=== PATIENT | male | born 1975 | race Caucasian/White ===

== ENCOUNTER 2016-05-25 12:05 | Day surgery (SDC) | payer OTHER ==
[~2016-05-25] VITALS: Ht 177.8 cm; Wt 91.2 kg
--- NOTE | 2016-05-25 06:49 | PCM.HPANE ---
Patient Data Surgeon Admitting Provider: Attending Provider:Yara Cartwright MD Primary Care Physician:Kehinde Flores MD Other Provider:[facility] Reason for Visit Family Planning Ht/WT & BMI Height (Feet): 5 Height (Inches): 10.5 Weight (Kilograms): 92.530 Body Mass Index 28.00 Allergies Coded Allergies: Sulfa (Sulfonamide Antibiotics) (Unverified Allergy, Unknown, 05/25/16) Past Anesthesia History Anesthesia History: Denies:: Anesthesia Reactions Diabetes History Hx Diabetes?: No MRSA MRSA: No Medications Reported Medications Esomeprazole Magnesium (Nexium)20 Mg Capsule.dr20 Mg PO DAILY Ref 0 05/22/16 Multivitamin (Multi Vitamin Daily)1 Each Tablet1 Each PO DAILY 30 Days Ref 0 05/22/16 Zolpidem (Ambien)10 Mg Xevmwd05 Mg PO HS PRN For Insomnia Ref 0 05/22/16 Fexofenadine/Pseudoephedrine ER (Payal-D 12 Hour)1 Each Tablet1 Tablet PO BID 05/22/16 History History of ENT Problems?: No Hx of Heart Problems?: No Hx of Respiratory Problem?: No Respiratory History: Denies:: Asthma COPD Emphysema Oxygen Administration Use of C-PAP Machine Hx Neurologic Problems?: No Neurological History: Denies:: CVA Headaches Multiple Sclerosis Parkinson's Disease Seizures TIA Hx of GI Problems?: Yes Gastrointestinal History: Positive for:: Gastroesphageal Reflux Heartburn Denies:: Gall Bladder Disease Hx of Problems?: No Male Hx: Denies:: Prostate Problems Scrotal Mass Testicular Surgery (vasectomy- family planning current admission problem) Skin History: Denies:: History Skin Disorders? Pressure Ulcers Hx Musculoskeletal Problems?: No Musculoskeletal History: Denies:: Back Injury Fibromyalgia Joint Replacement Musculoskeletal Trauma Myasthenia Gravis Osteoarthritis Hx of Psycho/Social Problems?: No Hx Surgeries?: Yes (appe) Hx Any Other Health Problems?: Yes Other History: Denies:: Cancer Thyroid Disease Hx Diabetes: No Hx Alcohol Use: YesAlcoholic Drinks Per Day: one drink dailyHx Substance Use: NoHave You Smoked inLast 12 mo: No Stop/Bang S-Snoring: Do You Snore Loudly: Yes T-Tired: feel tired, fatigued: Yes O-Obsered: Observed not breath: No P-Blood Pressure: treated: No B- Body Mass Index > 35 kg/m2: No A- Age over 50: No N- Neck Large Circumference: No G- Gender Male: Yes CRYSTAL Total Score: 3 Risk Assessment Category Category 1A: Patient has history of documented sleep apnea, and HAS NOT received any narcotic, sedative or anesthesia administration during this stay. Category 1B: Patient has history of documented sleep apnea, and HAS received any narcotic , sedative or anesthesia administration during this stay Category 2: Patient has SUSPECTED Obstructive Sleep Apnea, and HAS received any narcotic , sedative or anesthesia administration during this stay. Category 3: Patient has SUSPECTED Obstructive Sleep Apnea and HAS NOT received narcotic, sedative or anesthesia administration during this stay. Category 4: Outpatient in Procedural Areas with known sleep apnea or who screen positive for High Risk via the STOP/BANG questionnaire. Exam Exam General Appearance: Alert, Oriented X3, Cooperative HEENT/AIRWAY: MP 2, Neck Movement (from, thin), Mouth Opening (wnl) Lungs: Clear to Auscultation Heart: Exam Unremarkable Plan Impression Patient chart reviewed, patient interviewed and anesthestic plan with risks, benefits, and alternatives discussed, and informed consent obtained. ASA Physical Status: ASA1 Normal Healthy Anesthetic Plan: MAC Bene/Risks/Altern/Consents: Yes HP Complete Prior to Induction: Yes Tino Ramirez MD May 25, 2016 06:49
[~2016-05-25 12:05] MED LIST: CeFAZolin Inj 2 GM in IV Premix 1 EACH IV ONE; ESOM20CA28 PO; FEXO1TAB4 PO; Lactated Ringer's 1,000 ML IV ONE; MULT-1018 PO; ZLP10T PO
[2016-05-25] MEDS ORDERED: fentaNYL-PF 50 mCg/mL 2 mL Inj ONE (12:06)
[2016-05-25] MEDS ORDERED: Ondansetron 2 mg/mL 2 mL Inj ONE (12:06)
[2016-05-25] MEDS ORDERED: CeFAZolin Inj 2 gm / 50mL D5W IV ONE (12:52)
[2016-05-25 13:05] VITALS: BP 136/92; PULSE 86; RESP 16; O2SAT 94
[2016-05-25] MEDS ORDERED: Lactated Ringer's 500 ML IV PRN (14:51)
[2016-05-25] MEDS ORDERED: Lactated Ringer's 1,000 ML IV SCH (14:51)
[2016-05-25] MEDS ORDERED: HYDROmorphone 1 mg/mL Inj IVPUSH PRN (14:55)
[2016-05-25] MEDS ORDERED: fentaNYL-PF 50 mCg/mL 2 mL Inj IVPUSH PRN (14:55)
[2016-05-25] MEDS ORDERED: Labetalol 5 mg/mL 4 mL Inj IV PRN (14:55)
[2016-05-25] MEDS ORDERED: EPHEDrine Sulfate 50 mg/mL Inj IVPUSH PRN (14:55)
[2016-05-25] MEDS ORDERED: Atropine 0.4 mg/mL Inj IVPUSH PRN (14:55)
[2016-05-25] MEDS ORDERED: hydrALAZINE 20 mg/mL Inj IVPUSH PRN (14:55)
[2016-05-25] MEDS ORDERED: Dexamethasone 4 mg/mL Inj IVPUSH PRN (14:55)
[2016-05-25] MEDS ORDERED: Phenylephrine 10,000 mCg/mL Inj IVPUSH PRN (14:55)
[2016-05-25] MEDS ORDERED: Ondansetron 2 mg/mL 2 mL Inj IVPUSH PRN (14:55)
[2016-05-25] MEDS ORDERED: HYDROcodone-APAP 5-325 mg Tablet PO PRN (15:15)
--- NOTE | 2016-05-25 15:19 | PCM.ANEP1 ---
Post Anesthesia Phase 1 PACU Phase 1 Assessment Vital Signs Vital Signs Date Time Temp Pulse Resp B/P Pulse Ox O2 Delivery O2 Flow Rate FiO2 05/25/16 13:05 36 86 16 136/92 94 Room Air Anesthetic Administered: MAC Level of Alertness: Awake, talking BRIGHT's with Equal Strength: Yes Pain: No Nausea or Vomiting: No Oxygen Delivery: Room Air Lungs: Normal Air Movement Tino Ramirez MD May 25, 2016 15:19
[2016-05-25 15:21] VITALS: BP 148/79; PULSE 83; RESP 16; O2SAT 96
[2016-05-25 15:45] VITALS: BP 136/70; PULSE 91; RESP 16; O2SAT 94
--- NOTE | 2016-05-26 01:58 | OP ---
[address] [address] OPERATIVE REPORT PATIENT: OSBALDO KOCH : 1975 MR#: [id number] ADMIT: 05/25/2016 JOB ID: [id number] DATE OF SURGERY: 05/25/2016 PREOPERATIVE DIAGNOSIS(ES): Family planning. POSTOPERATIVE DIAGNOSIS(ES): Family planning. PROCEDURE PERFORMED: Bilateral vasectomy. SURGEON: Yara Cartwright MD. CLASSIFICATION AND TREATMENT DIRECTOR: None. FINDINGS: Bilateral vas deferens. ANESTHESIA: 1. Monitored anesthesia care. 2. Lidocaine 1% plain local subcutaneously. ESTIMATED BLOOD LOSS: 2 mL. DRAINS: None. SPECIMENS: Bilateral vas deferens. COMPLICATIONS: None. CONDITION: Stable. INDICATION FOR PROCEDURE: The patient is a 40-year-old gentleman who wishes to undergo vasectomy. He did not appeared to tolerate the scrotal exam in the clinic; and therefore, was counseled about options for vasectomy in clinic verus the operating room. He wished for the latter. DESCRIPTION OF PROCEDURE: After informed consent was obtained, the patient was taken to the operating room. Time-out was performed, identifying correct patient, surgical site, and procedure. Monitored anesthesia care was smoothly induced. He was placed in supine position. All pressure points were identified and appropriately padded. His genitals were then prepped and draped in usual sterile fashion. The vasectomy proceeded on the left side, first palpating the vas deferens. Lidocaine 1% was instilled subcutaneously. Penetrating towel clamps were used to isolate the vas and a 15 blade was used to incise the skin. The vas deferens was delivered through the incision. It was ligated with 2-0 Vicryl at the proximal and distal ends, and it was sharply incised, passing a segment off to Pathology as vas deferens. Bovie was used to cauterize both ends and the skin was closed with 3-0 chromic in interrupted fashion x2. The vasectomy proceeded in identical fashion on the right side. Patient tolerated procedure well without any apparent complications. He was taken to the PACU in good and stable condition. [facility]
--- NOTE | 2016-05-26 07:44 | PCM.ANEP2 ---
Post Anesthesia Evaluation ASA/CMS Post Anesthesia VS in Patient's Normal Range?: Yes Resp Stable; Airway Patent?: Yes CV Function & Hydration Stable: Yes Mental Status Recovered?: Yes Pain control Satisfactory?: Yes N/V Control Satisfactory?: Yes Tino Ramirez MD May 26, 2016 07:44
--- NOTE | 2016-05-26 14:02 | PATH ---
SURGICAL PATHOLOGY Attending Physician:Yara Cartwright, CASE STATUS: Signed Out PATIENT NAME: OSBALDO KOCH PID: [id number] : 1975 DATE COLLECTED:05/25/2016 23:33 SPECIMEN: Vas Deferens, Sterilization CLINICAL HISTORY: FAMILY PLANNING 1). VAS DEFERENS FINAL DIAGNOSIS: 1.SEGMENTS OF RIGHT AND LEFT VAS DEFERENS (STERILIZATION PROCEDURE): NO SIGNIFICANT PATHOLOGIC CHANGE. ICD10 CODE Z30.2 GROSS DESCRIPTION: The specimen is received in one formalin filled container labeled with the patient's name, sublabeled "vas deferens" and consists of 2 avery-garcía cylindrical shaped portions of tissue. The first measures 0.4 x 0.3 x 0.3 CM. The specimen is inked blue and entirely submitted in one cassette to be possibly further sectioned at the time of embedding. The second piece measures 0.4 x 0.3 x 0.3 CM. The specimen is inked black and entirely submitted in the same cassette to be possibly further sectioned at the time of embedding. 05/26/2016 DAC MICRO DESCRIPTION: See diagnosis. ICD-9 CODES: CPT CODES: 1: 05842 Electronically Signed Out Darwin Blanton MD [facility] [address], [place] [address] Technical component performed at [facility], [address] [place] [address] Ave[address], [place], [address]
== END 2016-05-25 23:59 | disposition home or self-care (01) ==
LOC: SAS 12:05
PROVIDERS: ATTEND Urology
DX: Z30.2 Encounter for sterilization (principal); K21.9 Gastro-esophageal reflux disease without esophagitis; Z87.891 Personal history of nicotine dependence
CPT/HCPCS: 55250; 88302; J0690; J2250; J2405; J3010; J7120